=== PATIENT | female | born 1975 | race Caucasian/White ===

== ENCOUNTER 2020-05-02 15:36 | Observation (INO) | payer OTHER, SELFPAY ==
[2020-05-02] VITALS (14 sets, daily range): BP systolic 103–134; BP diastolic 71–95; PULSE 65–99; RESP 12–21; TEMP 36.4–36.8; O2SAT 98–100; BMI 30.4
--- NOTE | ~2020-05-02 | XR_ITS ---
EXAMINATION: XR chest 2V DATE: 05/02/2020 16:30 INDICATION: Headache, hypertension TECHNIQUE: PA and lateral views of the chest are obtained. COMPARISON: None available FINDINGS: The lungs are free of acute opacities. There is no pleural effusion or pneumothorax. The ca rdiomediastinal silhouette is normal. The visualized bones and soft tissues are unremarkable. IMPRESSION: 1. No acute cardiopulmonary abnormality. Reviewed, dictated and finalized at location A. CAL DIRECTOR
--- NOTE | ~2020-05-02 | US_ITS ---
EXAMINATION: US venous doppler LE EXAM DATE: 05/03/2020 10:21 INDICATION: Bilateral leg edema. TECHNIQUE: Multiple grayscale, color flow and Doppler images of the lower extremity deep venous syste ms bilaterally were obtained and reviewed. There is no prior study for comparison. FINDINGS: Right side: The right common femoral, femoral and profunda veins demonstrate normal color flow, respi ratory variation, augmentation and compressibility. Compressibility, color flow confirmed within the right popliteal, posterior tibial, peroneal, and greater saphenous veins. Left side: The left common femoral, femoral and profunda veins demonstrate normal color flow, respira tory variation, augmentation and compressibility. Compressibility, color flow confirmed within the l eft popliteal, posterior tibial, peroneal, and greater saphenous veins. IMPRESSION: 1. No lower extremity deep venous thrombosis bilaterally. Reviewed, dictated and finalized at location A. MILL OPERATOR
--- NOTE | ~2020-05-02 | NM_ITS ---
EXAMINATION: NM pulmonary perfusion DATE: 05/03/2020 10:15 INDICATION: Chest pain and shortness of breath TECHNIQUE: 5.2 mCi Tc-99m MAA was administered IV. Scintigraphic images of the chest were obtained. COMPARISON: Chest radiograph dated 05/02/2020 FINDINGS: There is relatively homogeneous perfusion throughout the lungs. No perfusion defects identified. IMPRESSION: 1. Normal study. Reviewed, dictated and finalized at location B. L NURSE IMPRESSION: 1. Normal study.
--- NOTE | 2020-05-02 15:46 | ED.RECABL ---
HPI - Recheck/Abnormal Lab/Rx General Chief Complaint: Recheck/Abnormal Lab/Rx <China Reyes PA-C - Last Filed: 05/02/20 19:22> Stated Complaint: high blood pressure <China Reyes PA-C - Last Filed: 05/02/20 19:22> Time Seen by Provider: 05/02/20 15:44 <ANTHONY Dupree Last Filed: 05/02/20 19:22> Source: patient <China Reyes PA-C - Last Filed: 05/02/20 19:22> Mode of arrival: ambulatory <ANTHONY Dupree Last Filed: 05/02/20 19:22> Limitations: no limitations <China Reyes PA-C - Last Filed: 05/02/20 19:22> History of Present Illness HPI narrative: This is a 45 year old female that presents to the ER for chest pain since yesterday. Reports the pain is a pressure and intermittent. No known alleviating or exacerbating factors. It seems to last only briefly. Also reports she has been having swelling in her legs that she notes at night. Reports today she was not feeling well and took her blood pressure and it was elevated to 200 systolic. She was worried she may be having an anxiety attack, so took a Xanax. Does report some shortness of breath, that she attributes to smoking. Denies fever, current chest pain, current lower extremity edema, or cough. <ANTHONY Dupree Last Filed: 05/02/20 19:22> Related Data Home Medications: Home Medications Medication Instructions Recorded Confirmed levothyroxine 05/02/20 05/02/20 <ANTHONY Dupree Last Filed: 05/02/20 19:22> Allergies/Adverse Reactions: Allergies Allergy/AdvReac Type Severity Reaction Status Date / Time escitalopram [From Lexapro] Allergy Severe Swelling Verified 05/02/20 18:10 of Lip/Tongue/Throat iohexol Allergy Severe Swelling Verified 05/02/20 18:10 [From contrast - CT, X-RAY] of Lip/Tongue/Throat <ANTHONY Dupree Last Filed: 05/02/20 19:22> Review of Systems Review of Systems: Narrative: CONSTITUTIONAL: Denies fever CARDIOVASCULAR: Reports chest pain. Denies edema. RESPIRATORY: Reports dyspnea. <China Reyes PA-C - Last Filed: 05/02/20 19:22> All systems reviewed & are unremarkable except as noted in HPI and below <China Reyes PA-C - Last Filed: 05/02/20 19:22> PMFSH Past Medical History Medical History: Medical History (Updated 05/02/20 @ 18:12 by China Reyes PA-C) History of hypertension History of hypothyroidism <China Reyes PA-C - Last Filed: 05/02/20 19:22> Social History Social History: Social History (Updated 05/02/20 @ 16:20 by China Reyes PA-C) Smoking status: Current every day smoker <China Reyes PA-C - Last Filed: 05/02/20 19:22> Exam Narrative: Exam Narrative: GENERAL: Well-appearing, obese, and in no acute distress. HEAD: Normocephalic, atraumatic. EYES: EOMI. ENT: Mucous membranes moist. Oropharynx without tonsillar hypertrophy exudate or other lesions. NECK: Supple. No adenopathy or masses. No carotid bruits or JVD CHEST: Clear to auscultation. No respiratory distress. No wheezes rales or rhonchi HEART: Regular rate and rhythm. No murmur heard. Normal peripheral pulses. EXTREMITIES: Normal range of motion. No edema. SKIN: Warm, dry, no rash. NEURO: No focal deficits. Alert and oriented x3. PSYCH: Normal mood and affect <China Reyes PA-C - Last Filed: 05/02/20 19:22> Course WATER PUMP OPERATOR/PA Physician Supervision For this patient encounter, I reviewed the WATER PUMP OPERATOR or PA documentation, treatment plan, and medical decision making; and I had [id number] time with this patient. <Fide Villatoro MD - Last Filed: 05/02/20 18:48> Consultations Consultation #1: Spoke with Dr. Holder about patient and work-up who agrees with admission for chest pain. Patient will be made n.p.o. at midnight <China Reyes PA-C - Last Filed: 05/02/20 19:22> Date: 05/02/20 <China Reyes PA-C - Last Filed: 05/02/20 19:22> Time: 19:21 <China Reyes PA-C - [place]
--- NOTE | 2020-05-02 15:51 | PC.NURSE ---
PT DECLINES AN IV UNTIL SHE SEES THE PHYSICIAN.
[2020-05-02 16:57] LABS: Basophils Absolute Auto 0.1 K/mm3 (0.0-0.1); Basophils Percent Auto 0.5 % (0.2-1.2); Eosinophils Absolute Auto 0.2 K/mm3 (0-0.3); Eosinophils Percent Auto 2.1 % (0-4.4); Hemoglobin 13.7 g/dL (12.0-15.0); Immature Granulocyte Absolute 0.08 K/mm3 (0.00-0.031); Immature Granulocyte Percent A 0.7 % (0-0.5); Lymphocytes Absolute Auto 2.61 K/mm3 (0.9-3.2); Lymphocytes Percent Auto 23.6 % (18.3-44.2); Mean Corpuscular HGB Conc 33.4 g/dl (32-36); Mean Corpuscular Hemoglobin 31.6 pg (26-34); Mean Corpuscular Volume 94.5 fl (80-100); Mean Platelet Volume 9.6 fl (7.4-10.4); Monocytes Absolute Auto 0.7 K/mm3 (0.1-0.6); Monocytes Percent Auto 6.4 % (2.6-8.5); Neutrophils Absolute Auto 7.4 K/mm3 (1.3-6.7); Neutrophils Percent Auto 66.7 % (45.5-73.1); Platelet Count Result 338 k/mm3 (150-375); Red Blood Count 4.34 M/mm3 (4.2-5.4); Red Cell Distribution Width 12.6 % (11.5-14.5); White Blood Count 11.1 K/mm3 (4.5-10.0)
[2020-05-02 17:10] LABS: INR 0.8; Partial Thromboplastin Time 26.7 SECONDS (22.3-36.8)
[2020-05-02 17:13] LABS: Anion Gap 8 mmol/L (8-16); Blood Urea Nitrogen 12 mg/dL (7-17); Calcium 9.6 mg/dL (8.4-10.2); Carbon Dioxide 27 mmol/L (22-30); Chloride 104 mmol/L (98-107); D Dimer 0.35 ug/mL (<0.48); Estimated CRCL calculation 80 ml/min; Estimated Glomerular Filt Rate > 60; Glucose 96 mg/dL (65-105); Potassium 3.9 mmol/L (3.4-5.0); Sodium 139 mmol/L (137-145)
[2020-05-02 17:25] LABS: NT Pro B Type Natriuretic Pept 79 PG/ML (5-100); Troponin I < 0.012 ng/mL (0.000-0.034)
[2020-05-02] MEDS: ASPIRIN 81 MG CHEWABLE TABLET 324 MG PO (19:10)
--- NOTE | 2020-05-02 19:19 | ECG_ITS ---
Measurements Intervals [facility] Rate: 74 P: -2 MD: 140 QRS: 33 QRSD: 80 T: 11 QT: 344 QTc: 383 Interpretive Statements SINUS RHYTHM BORDERLINE ST ABNORMALITY- ANTEROLAT/INF LEADS BORDERLINE ECG Electronically Signed On 05-02-2020 20:29:20 SALES OFFICE ADMINISTRATOR by William Chávez D.O.
--- NOTE | 2020-05-02 20:02 | ADMGEN ---
This patient, Leslie Bello, was admitted to IMU Room 207-01 at 2000. Patient/family oriented to hospital policies and general routines including ID bracelet, bed and alarms, visiting hours, pain management, procedures, bathroom and other care routines, personal items, smoking policy, room service/diet, and visiting hours. Information on how to activate the Rapid Response Team has been discussed. Patient/Family are encouraged to report perceived risks to care and to ask questions if they do not understand what they are told or what they should do.
[2020-05-02 20:19] LABS: Troponin I < 0.012 ng/mL (0.000-0.034)
--- NOTE | 2020-05-02 20:55 | PM.IMHP ---
H&P: HPI History of Present Illness Date/Time: 05/02/20 20:55 Chief Complaint: Chest pain Narrative: Leslie Bello is a 45 year old female the patient was telling me that she was having chest pain on now for about 3 days. She told me that she took about 8 of the 200 mg Motrin today. She had a headache today. She has a history of having hypertension and has taken her medication. However today she felt like she was very stressed out. 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 She was complaining of some pain that radiated down her left arm but she tells me this is due to a pinched nerve in her neck. She has had laminectomy to her cervical spine in the past. She has had this chronic condition to her left arm. The patient stated that she was not diaphoretic. No nausea no vomiting no diarrhea. No fever no chills. The patient said that she has had a panic attack in the past. The patient stated that she was very short of breath today. She has chest pressure that has been intermittent on and off for at least a couple days. She said that her blood pressure was over 200 systolic today. The patient stated that she had been on clonazepam in the past for her panic attacks but no longer takes that. She took half of her Xanax today. She said that the Xanax did help. She did take any aspirin but took Motrin for her headache. Patient stated that her chest pressure is intermittent goes but is not consistent. Patient's cardiac enzymes are negative x1. She takes hypothyroid medication and has not Had her thyroid checked in about a year. Patient's EKG was read as borderline ST abnormality anterior lateral inferior leads. Cardiology has been consulted and the patient will be NPO after midnight. The patient is sitting up and talking in full sentences. She is not diaphoretic chest x-ray was read as nothing acute. Review of Systems Review of Systems: All systems reviewed & are unremarkable except as noted in HPI and below Constitutional: Constitutional: Reports as per HPI and Reports no additional constitutional complaints Eyes: Eyes: Reports as per HPI and Reports no additional eye complaints ENT: Reports system reviewed and no additional complaints, except as documented and Reports Normal hearing present Cardiovascular: Cardiovascular: Reports no additional cardiovascular complaints Respiratory: Respiratory: Reports no additional respiratory complaints and Reports no additional respiratory complaints Gastrointestinal: Gastrointestinal: Reports as per HPI and Reports no additional gastrointestinal complaints Musculoskeletal: Musculoskeletal: Reports no additional musculoskeletal complaints Integumentary/Breasts: Skin/Breast: Reports system reviewed and no additional complaints, except as docu and Reports as per HPI Neurologic: Reports system reviewed and no additional complaints, except as documented, Reports as per HPI and Reports Normal hearing present Psychiatric: Psychiatric: Reports no additional psychiatric complaints and Reports as per HPI Endocrine: Endocrine: Reports no additional endocrine complaints Hematologic/Lymphatic: Hematologic/Lymphatic: Reports no additional hematologic/lymphatic complaints Allergic/Immunologic: Allergic/Immunologic: Reports no additional allergic/immunologic complaints PMF Past Medical History Medical History (Updated 05/02/20 @ 21:08 by Tita Branch NP) Anxiety DVT (deep venous thrombosis) After leg surgery History of hypertension History of hypothyroidism Neuropathy Left arm Surgical History Surgical History (Updated 05/02/20 @ 21:08 by Tita Branch NP) H/O cervical spine surgery Cervical fusion H/O knee surgery For surgeries to right knee H/O tubal ligation History of appendectomy Family History Family History Mother Obesity Father Hy
[2020-05-02] MEDS: traMADol HCL (*CRX) 50 MG TABLET PO (22:31)
[2020-05-02 23:21] LABS: Troponin I < 0.012 ng/mL (0.000-0.034)
[2020-05-03] VITALS (12 sets, daily range): BP systolic 92–105; BP diastolic 57–67; PULSE 55–89; RESP 18–22; TEMP 35.7–36.7; O2SAT 97–100
--- NOTE | 2020-05-03 | ECHO_ITS ---
Patient Info Name: Leslie Bello Age: 45 years : 1975 Gender: Female Ht: 66 in Wt: 188 lbs BSA: 2.02 m2 HR: 61 bpm BP: 92 / 57 mmHg Heart Rhythm: Sinus Rhythm Technical Quality: Good Exam Date: 05/03/2020 8:02 AM Exam Location: [facility] Patient Status: Inpatient Admit Date: 05/02/2020 Staff Ordering Physician: Tita Branch NP Front End Manager: Jonny Ramirez RDCS, RT Attending Provider: Annabelle Armstrong MD Referring Physician: Sarina RAUSCH; Exam Type: CA echo doppler color flow Study Info Indications R07.89 - Other chest pain Complete two-dimensional, color flow and Doppler transthoracic echocardiogram is performed. Strain analysis performed. Summary 1. Complete two-dimensional, color flow and Doppler transthoracic echocardiogram is performed. 2. Normal left ventricular size and thickness with good contractility of all segments and no focal wall motion abnormalities. Estimated ejection fraction visually is 60-65% and calculated to be 59%. Normal diastolic function. Global longitudinal strain was normal at-19%. 3. No significant valve disease. 4. Normal sinus rhythm. Left Ventricular Outflow Tract Name Value Normal LVOT 2D LVOT Diameter 2.1 cm LVOT Doppler LVOT Peak Gradient 3 mmHg LVOT Mean Gradient 2 mmHg LVOT VTI 19 cm LVOT VTI/AV VTI Ratio 0.9 LVOT Stroke Volume 63 ml LVOT CO 4.4 l/min LVOT CI 2.2 l/min/m2 Mitral Valve Name Value Normal MV Doppler MV Decel Jerauld 444 cm/s2 MV PHT 52 ms MV Area (PHT) 4.2 cm2 4.0-5.0 MV Diastolic Function MV E Peak Velocity 80 cm/s MV A Peak Velocity 73 cm/s MV E/A 1.1 MV Decel Time 181 ms MV Annular TDI MV E/e' (Septal) 9.9 <=8.0 MV E/e' (Lateral) 5.5 <=8.0 MV E/e' (Average) 7.7 Tricuspid Valve Name Value Normal Estimated PAP/RSVP RA Pressure 10 mmHg <=5 TV Diastolic Function RV MPI 0.16
[2020-05-03 04:39] LABS: Basophils Absolute Auto 0.1 K/mm3 (0.0-0.1); Eosinophils Absolute Auto 0.3 K/mm3 (0-0.3); Eosinophils Percent Auto 3.9 % (0-4.4); Hematocrit 36.9 % (37.0-47.0); Hemoglobin 12.2 g/dL (12.0-15.0); Immature Granulocyte Absolute 0.05 K/mm3 (0.00-0.031); Immature Granulocyte Percent A 0.6 % (0-0.5); Lymphocytes Absolute Auto 3.02 K/mm3 (0.9-3.2); Lymphocytes Percent Auto 36.8 % (18.3-44.2); Mean Corpuscular HGB Conc 33.1 g/dl (32-36); Mean Corpuscular Hemoglobin 31.4 pg (26-34); Mean Corpuscular Volume 94.9 fl (80-100); Mean Platelet Volume 9.5 fl (7.4-10.4); Monocytes Absolute Auto 0.7 K/mm3 (0.1-0.6); Monocytes Percent Auto 7.9 % (2.6-8.5); Neutrophils Absolute Auto 4.1 K/mm3 (1.3-6.7); Neutrophils Percent Auto 49.8 % (45.5-73.1); Platelet Count Result 302 k/mm3 (150-375); Red Blood Count 3.89 M/mm3 (4.2-5.4); Red Cell Distribution Width 12.8 % (11.5-14.5); White Blood Count 8.2 K/mm3 (4.5-10.0)
[2020-05-03 05:00] LABS: Alanine Aminotransferase 33 U/L (4-35); Albumin Level 3.9 g/dL (3.5-5.1); Alkaline Phosphatase 44 U/L (38-126); Anion Gap 6 mmol/L (8-16); Aspartate Amino Transferase 34 U/L (14-36); Bilirubin,Total 0.4 mg/dL (0.2-1.3); Blood Urea Nitrogen 15 mg/dL (7-17); Calcium 9.1 mg/dL (8.4-10.2); Carbon Dioxide 25 mmol/L (22-30); Chloride 109 mmol/L (98-107); Estimated CRCL calculation 76 ml/min; Estimated Glomerular Filt Rate > 60; Glucose 105 mg/dL (65-105); Lactate Dehydrogenase 286 U/L (313-618); Lipase 150 U/L (23-300); Magnesium 1.9 mg/dL (1.6-2.3); Phosphorus 4.3 mg/dL (2.5-4.5); Potassium 3.7 mmol/L (3.4-5.0); Sodium 140 mmol/L (137-145)
[2020-05-03 05:01] LABS: Lactic Acid Reflex 0.5 mmol/L (0.7-2.1)
[2020-05-03 06:06] LABS: Free T4 Free Thyroxine Reflex 0.99 ng/dL (0.78-2.19)
[2020-05-03] MEDS: LEVOTHYROXINE SODIUM 100 MCG TABLET PO (06:17)
[2020-05-03 06:56] LABS: Total Triiodothyronine (T3) 1.07 NG/ML (0.97-1.69)
[2020-05-03] MEDS: ACETAMINOPHEN 500 MG TABLET 1000 MG PO (07:58)
--- NOTE | 2020-05-03 09:05 | PM.CNCAR ---
Assessment and Plan Additional Plan 45-year-old lady with: Variety of symptoms yesterday among them was some intermittent central chest heaviness. She has no history of coronary disease and no exertional symptoms suggestive of angina. Acute coronary syndrome has been ruled out by ECG and serial troponin levels. She is asymptomatic this morning. Laboratory data does suggest that she is still hypothyroid. This can be addressed by the primary team. At this point I do not believe we need to initiated an ischemia workup given the atypical nature of the symptoms and no objective evidence of ACS. I will not plan on continuing to follow her on rounds. If you have any additional cardiac concerns please let me know. Eliot Flowers MD [facility] History of Present Illness History of Present Illness Consult date/time: 05/03/20 09:05 Consult reason: chest pain Reason For Visit: Chest pain Narrative: This is a very pleasant 45-year-old lady am seeing at the request of the hospitalist this morning because of a variety of symptoms that caused her to be concerned come to the emergency room yesterday. Among her symptoms were the some sense of intermittent pressure in the center of the chest. The patient states that she was working from home she works as a medical customer service representative and with the pandemic her job has been primarily at home for quite a long time now. She was talking to a co-worker on the phone and began to feel unusual. She states that the co-worker was commenting that her speech was difficult to understand. That created her to have some concern she is hypertensive and so she decided to take her blood pressure with her automated cuff and the reading was very high with systolic pressures in excess of 200. After that she became much more concerned. She states that she does have history of occasional anxiety attacks but did not feel that she was having an anxiety attack. She then started to have some intermittent sensations of discomfort in the chest with some pressure that would come and go off and on through the rest of the day she also had the sense of some sharp brief knife-like pain in the shoulder on the right side. She was considering these symptoms during the day she did take several doses of ibuprofen to try to obtain relief and when she continued to feel unwell she notified her and they brought her to the emergency room for evaluation. In the emergency room she states her blood pressure was not found to be elevated and her workup was unremarkable as far as acute coronary syndrome was concerned. She was admitted to the hospital for observation and I am seeing her in consultation this morning in this setting. She has normal active person in her usual life although she does not do any regular exercise routine for fitness. Having said that she carries out her normal activities of daily living generally without any symptoms of chest pain unusual shortness of breath. She denies any sense of palpitations or any history of syncope. Her electrocardiogram in the chart is a normal tracing her troponin levels are negative x3 sets. Her laboratory data does show that her TSH level is elevated despite taking Synthroid. Past medical history is primarily remarkable for hypertension hypothyroidism and anxiety disorder. She also has a history of some cervical spinal disc disease and has had a C-spine operation in the past. Review of Systems Constitutional: Constitutional: Reports no additional constitutional complaints Eyes: Eyes: Reports no additional eye complaints ENT: Reports system reviewed and no additional complaints, except as documented Cardiovascular: Cardiovascular: Reports as per HPI Respiratory: Respiratory: Reports no additional respiratory complaints Gastrointestinal: Gastrointestinal: Reports no additional gastrointestinal complaints Musculoskeletal: Musculoskeletal: Reports as per HPI Integumentary/Breasts: Skin/Breast: Reports system
[2020-05-03] MEDS: lisinopriL 10 MG TABLET PO (10:25)
[2020-05-03] MEDS: NICOTINE (*PBKC) 21 MG PATCH 1 PATCH TRANSDERM (10:25)
[2020-05-03] MEDS: hydroCHLOROthiazide 12.5 MG CAPSULE PO (10:25)
[2020-05-03] MEDS: SUMAtriptan SUCCINATE 25 MG TABLET 100 MG PO (13:15)
--- NOTE | 2020-05-03 16:30 | PM.DS ---
DS: Admitting Diagnosis Admitting Diagnosis Admitting Diagnosis: (1) Chest pain: (2) History of hypertension: (3) History of hypothyroidism: (4) Anxiety: (5) Neuropathy: DS: Discharge Diagnosis Discharge Diagnosis (1) Chest pain: Qualifiers: Chest pain type: unspecified Qualified Code(s): R07.9 - Chest pain, unspecified Code(s): R07.9 - Chest pain, unspecified Status: Acute Assessment and Plan: patient underwent a stress test which was normal (2) Tobacco dependence: Code(s): F17.200 - Nicotine dependence, unspecified, uncomplicated Status: Acute Assessment and Plan: encouraged tobacco cessation patient expressed desire to quit smoking follow-up in outpatient setting (3) Neuropathy: Code(s): G62.9 - Polyneuropathy, unspecified Status: Chronic Assessment and Plan: a stable continue home meds (4) Anxiety: Code(s): F41.9 - Anxiety disorder, unspecified Status: Chronic Assessment and Plan: continue home med (5) History of hypertension: Code(s): Z86.79 - Personal history of other diseases of the circulatory system Status: Chronic Assessment and Plan: continue to monitor follow-up in the outpatient setting (6) History of hypothyroidism: Code(s): Z86.39 - Personal history of other endocrine, nutritional and metabolic disease Status: Chronic Assessment and Plan: continue home follow-up in the outpatient setting DS: Summary Hospital Course Reason for hospitalization: chest pain Hospital Course: Leslie Bello is a 45 year old female the patient presented to ED due to chest pain on now for about 3 days. She took about 8 of the 200 mg Motrin prior to coming, had a headache as well, has hypertension and has been taken her medication. She has been feeling stressed lately. 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 She has had laminectomy surgery to her cervical spine in the past. She has had this chronic condition to her left arm. The patient stated that she was not diaphoretic. No nausea no vomiting no diarrhea. No fever no chills, she has had a panic attacks in the past, she was very short of breath , chest pressure that has been intermittent on and off for at least a couple days, measured her BP at home and it was 200 systolic , she had been on clonazepam in the past for her panic attacks but no longer takes it. She took half of her Xanax which did help, took aspirin but took Motrin for her headache. Patient's cardiac enzymes were normal. patient was ruled out for acute coronary syndrome with serial troponins which were all within normal limits she underwent a stress test which was irrelevant no procedures were done patient had a cardiology consult hospitalist stay was overall uneventful the patient was discharged home will follow-up in the outpatient setting Time Spent with Patient Time attestation: Total time spent providing and/or coordinating discharge services: Exam Const: General: comfortable, no acute distress, well developed, alert and awake Nutritional Appearance: average body habitus Orientation/consciousness: patient oriented x3 HENMT: Head: normal to inspection, normocephalic and atraumatic Ears: hearing grossly normal bilaterally Face and sinus: normal facial exam Eyes: General: appearance normal, both eyes and all related structures Pupils: Equal, round and reactive pupils present EOM: EOMs intact bilaterally Neck: Neck: full ROM, no lymphadenopathy and no JVD Thyroid: thyroid normal Lymphatic: no lymphadenopathy noted Resp: Effort & Inspection: normal respiratory effort and able to speak in complete sentences Auscultation: clear to auscultation bilaterally Cardio: Jugular venous distension:
== END 2020-05-03 17:08 | disposition home or self-care (01) ==
LOC: ANHED 18:12 → ANHIMU 19:02
PROVIDERS: Nurse Practitioner; Physician Assistant; Admitting Provider Internal Medicine; Emergency Provider Emergency Medicine; Visit Provider Internal Medicine
DX: R07.9 Chest pain, unspecified (principal); G62.9 Polyneuropathy, unspecified; R06.02 Shortness of breath; E03.9 Hypothyroidism, unspecified; F41.9 Anxiety disorder, unspecified; F17.210 Nicotine dependence, cigarettes, uncomplicated; I10 Essential (primary) hypertension; Z86.718 Personal history of other venous thrombosis and embolism
CPT/HCPCS: 36415; 71046; 78580; 80048; 80053; 83605; 83615; 83690; 83735; 83880; 84100; 84439; 84443; 84480; 84484; 85025; 85380; 85610; 85730; 93005; 93306; 93970; 96374; 99285; A9270; A9540; G0378; J0131; J1650